=== PATIENT | female | born 1950 | race Caucasian/White ===

== ENCOUNTER → 2018-07-19 | Outpatient (CLI) | payer MEDICARE, OTHER ==
[2015-01-25 09:30] VITALS: BMI 20.8
[~2018-07-19] MED LIST: ALBU8.5H12 IH; ALE70 PO; AMI10 PO; AZM25R INH; BACOO OU; CETI10CA8 PO; DOCU-416 PO; EST42T PV; LIDO700A29 TD; LISI5TAB25 PO; MOMR; OXYC-373 PO; ROS10 PO; TRIA1CAP86 PO; [UNRECOGNIZED DRUG - CODE] IH
--- NOTE | 2018-07-19 14:09 | RADIOLOGY IMAGING REPORT ---
FACILITY: [facility] - [place] PATIENT NAME: Ana Alfredo : 1950 MR: [id number] V: [id number] EXAM DATE: ORDERING PHYSICIAN: BALWINDER NAIDU TECHNOLOGIST: Location: [facility] [place] Patient: Ana Alfredo : 1950 Visit/Account:[id number] Date of Sevice: 07/19/2018 Clinical history: Postmenopausal, osteoporosis screening. Comparison: 01/25/2016. LUMBAR SPINE: The bone mineral density (BMD) measured from L1-L4 correlates with a Z-score of 1.7 and a T-score of 0.0 which is normal as defined by the World Health Organization. The corresponding risk of fracture in the lumbar spine is not increased compared with a young adult reference population. This value ugalde s increased by 4.9 % since the prior study. More than 5% change is considered significant. HIP: Bone mineral density (BMD) measured in the left Total Hip region correlates with a Z-score of -0.6 an d a T-score of -2.0 which is osteopenia as defined by the World Health Organization. The correspondi ng risk of fracture in the hip is increased 4 times compared with a young adult reference population. This value has decreased by 2.4 % since the prior study. More than 5% change is considered signifi cant. Bone mineral density (BMD) measured in the left femoral neck correlates with a Z-score of -1.1 and a T-score of -2.8 which is osteoporosis as defined by the World Health Organization. The corresponding risk of fracture in the hip is increased 6-8 times compared with a young adult reference population. This value has decreased by 5.9 % since the prior study. More than 5% change is considered signifi cant. Bone mineral density (BMD) measured in the left Femoral Neck region measures 0.653 g/cm2. IMPRESSION: 1. Lumbar spine: Normal. There has been no significant change in the bone mineral density since th e previous exam. 2. Left total hip: Osteopenia. There has been no significant change in the bone mineral density sinc e the previous exam. 3. Left Femoral Neck: Osteoporosis. There has been significant decrease in the bone mineral density since the previous exam 4. Left femoral neck bone mineral density: 0.653 g/cm2. The next DEXA scan of this patient should include the following sites: Lumbar spine and left hip. FRAX(R) WHO Fracture Risk Assessment Tool link: http://www.shef.ac.uk/FRAX/tool.jsp?locationValue=9 PLEASE NOTE: 1) The World Health Organization defines low BMD as follows: T-score Normal > -1 Osteopenia < -1 and > -2.5 Osteoporosis < -2.5 without fractures Established osteoporosis < -2.5 with fractures 2) In general, you may wish to consider: Diagnosis Treatment Follow-up DEXA Normal BMD Prevention 2-3 years Osteopenia Prevention/therapy 1-2 years Osteoporosis Therapy Yearly 3) Fracture risk estimated from the T-score is more accurate for vertebral fractures (often spontane ous) than for hip fractures Report Dictated By: Magy Schultz MD at 07/19/2018 1:41 PM Report E-Signed By: Magy Schultz MD at 07/19/2018 2:05 PM WSN:[id number]
--- NOTE | 2018-07-19 16:11 | RADIOLOGY IMAGING REPORT ---
[place] [facility] [place] OLIVERIO SMITH : [id number] MR: [id number] V: [id number] EXAM DATE: [id number] ORDERING PHYSICIAN: BALWINDER NAIDU TECHNOLOGIST: Josee Castaneda PROCEDURE:BILATERAL DIGITAL SCREENING MAMMOGRAM WITH CAD ASSISTED INTERPRETATION & 3D TOMOSYNTHESIS COMPARISON:Prior mammograms 10/06/16, 10/03/15. INDICATIONS:SCREENING FINDINGS: There is scattered fibroglandular tissue. No significant mass, microcalcification or architectural distortion. No change compared to priors. DIAGNOSTIC CATEGORY 1--NEGATIVE. RECOMMENDATIONS: ROUTINE MAMMOGRAM AND CLINICAL EVALUATION. IMPRESSION: BIRADS 1: Negative. Dictated by: Shin Bolaños on 07/19/2018 at 13:43 Transcribed by: CHICO on 07/19/2018 at 13:51 Approved by: Shin Bolaños on 07/19/2018 at 16:10 [facility]
== END ==
LOC: MAMO 01:28
PROVIDERS: ATTEND Family Medicine
DX: Z12.31 Encounter for screening mammogram for malignant neoplasm of breast (principal); M85.88 Other specified disorders of bone density and structure, other site; M81.0 Age-related osteoporosis without current pathological fracture; N95.1 Menopausal and female climacteric states
CPT/HCPCS: 77063; 77067; 77080

== ENCOUNTER → 2018-08-02 | Outpatient (CLI) | payer MEDICARE, OTHER ==
[2015-01-25 09:30] VITALS: BMI 20.8
[~2018-08-02] MED LIST changes: +DENOSUMAB 60 MG/1 ML SYR SUBQ ONE
[2018-08-02 13:37] VITALS: BP 133/83
== END ==
LOC: SPU 08:24
PROVIDERS: ATTEND Family Medicine
DX: M81.0 Age-related osteoporosis without current pathological fracture (principal)
CPT/HCPCS: 96372; J0897

== ENCOUNTER → 2018-10-19 | Outpatient (CLI) | payer MEDICARE, OTHER ==
[2015-01-25 09:30] VITALS: BMI 20.8
[~2018-10-19] MED LIST changes: -DENOSUMAB 60 MG/1 ML SYR SUBQ ONE
--- NOTE | 2018-10-19 13:29 | RADIOLOGY IMAGING REPORT ---
FACILITY: [facility] PATIENT NAME: Ana Alfredo : 1950 MR: [id number] V: [id number] EXAM DATE: ORDERING PHYSICIAN: BALWINDER NAIDU TECHNOLOGIST: Location: [facility] Patient: Ana Alfredo : 1950 Visit/Account:[id number] Date of Sevice: 10/19/2018 Mandible: Indication: Jaw pain. No known injury. Technique: Multiple AP, lateral, and oblique views. Comparison: None. Findings: No evidence of fracture, dislocation, or other acute skeletal deformity. There is normal mi neralization. No soft tissue deformity or foreign body is identified. Multiple crowns are seen in th e molars in the superior and inferior septum bilaterally. There may be caries in the left most poste rior upper molar on the left side. Impression: Questionable caries in a left upper central posterior molar which is uncapped. This requ ires correlation visually. Mandible is unremarkable. Report Dictated By: Ventura Lowry MD at 10/19/2018 1:19 PM Report E-Signed By: Ventura Lowry MD at 10/19/2018 1:26 PM WSN:[email or web address]
== END ==
LOC: RAD 12:44
PROVIDERS: ATTEND Family Medicine
DX: K02.9 Dental caries, unspecified (principal)
CPT/HCPCS: 70100

== ENCOUNTER → 2019-02-01 | Outpatient (CLI) | payer MEDICARE, OTHER ==
[2015-01-25 09:30] VITALS: BMI 20.8
[~2019-02-01] MED LIST changes: +DENOSUMAB 60 MG/1 ML SYR SUBQ ONE; -ROS10 PO; +ROSU10TA PO
[2019-02-01 12:15] VITALS: BP 128/84
== END ==
LOC: SPU 09:34
PROVIDERS: ATTEND Family Medicine
DX: M81.0 Age-related osteoporosis without current pathological fracture (principal)
CPT/HCPCS: 96372; J0897